=== PATIENT | female | born 1955 | race Caucasian/White ===

== ENCOUNTER 2021-05-22 14:57 | Emergency (ER) | payer OTHER, MEDICARE | END 2021-05-22 16:57 | disposition home or self-care (01) | LOC: ERS 14:57 | DX: S16.1XXA Strain of muscle, fascia and tendon at neck level, initial encounter (principal); S70.02XA Contusion of left hip, initial encounter; K21.9 Gastro-esophageal reflux disease without esophagitis; V80.010A Animal-rider injured by fall from or being thrown from horse in noncollision accident, initial encounter; Z79.899 Other long term (current) drug therapy | CPT/HCPCS: 72170 ==

== ENCOUNTER 2022-05-25 09:36 | Outpatient (CLI) | payer MEDICARE | END 2022-05-25 09:37 | disposition home or self-care (01) | LOC: RAD-FRANK 09:36 | PROVIDERS: ATTEND Nurse Practitioner Family | DX: R05.9 Cough, unspecified (principal); J84.9 Interstitial pulmonary disease, unspecified | CPT/HCPCS: 71046 ==